=== PATIENT | male | born 1935 | race Caucasian/White ===

== ENCOUNTER 2017-01-09 17:37 | Inpatient (IN) | payer MEDICARE, OTHER ==
[~2017-01-09] VITALS: Ht 180.3 cm; Wt 74.3 kg
[~2017-01-09 17:37] MED LIST: AMLO5TAB2 PO; METF10002 PO; MULT-6 PO; OMEP-110 PO; SIMV10TA3 PO
[2017-01-09] MEDS ORDERED: SODIUM CHLORIDE FLUSH 10ML SYR IVF ONE (21:00)
[2017-01-09 22:07] LABS: HEMOGLOBIN 11.7 g/dL (13.7-18.0)
[2017-01-09 22:17] LABS: ASPARTATE AMINO TRANSFERASE 25 U/L (15-37); BLOOD UREA NITROGEN 30 mg/dL (7-18)
[2017-01-09] MEDS ORDERED: MORPHINE SULFATE 4 MG/ML, 1ML IVPush PRN (22:30)
[2017-01-09] MEDS ORDERED: ACETAMINOPHEN 325 MG TABLET PO PRN (22:30)
[2017-01-09] MEDS ORDERED: ONDANSETRON 2MG/ML, 2ML IVP PRN (22:30)
[2017-01-09] MEDS ORDERED: BISACODYL 10 MG SUPP PR PRN (22:30)
[2017-01-09] MEDS ORDERED: DOCUSATE 100 MG CAPSULE PO PRN (22:30)
[2017-01-09] MEDS ORDERED: POLYETHYLENE GLYCOL 17 GM PACKET PO PRN (22:30)
[2017-01-09 23:08] VITALS: BP 162/89
[2017-01-09] MEDS: OXYcodone IR 5MG TABLET PO PRN (23:48)
[2017-01-10] MEDS: ENOXAPARIN 40 MG/0.4 ML SQ SCH ×2 (00:11→22:58)
[2017-01-10 02:46] VITALS: BP 143/75
[2017-01-10 05:02] LABS: HEMOGLOBIN 11.1 g/dL (13.7-18.0)
[2017-01-10 05:09] LABS: BLOOD UREA NITROGEN 27 mg/dL (7-18)
[2017-01-10 07:15] VITALS: BP 149/86
[2017-01-10] MEDS: MULTIVITAMIN 1 TABLET PO SCH (08:53)
[2017-01-10] MEDS: AMLODIPINE 5 MG TABLET PO SCH (08:53)
[2017-01-10] MEDS: SIMVASTATIN 10 MG TABLET PO SCH (08:53)
[2017-01-10] MEDS: metFORMIN 500 MG TABLET PO SCH ×2 (08:54→21:33)
[2017-01-10] MEDS: SODIUM CHLORIDE FLUSH 10ML SYR IVF SCH ×2 (08:54→21:38)
[2017-01-10] MEDS: INSULIN REGULAR 100 UNITS/ML, 3ML VIAL SQ-INSULIN SCH ×4 (08:54→21:38)
[2017-01-10] MEDS ORDERED: ERGOCALCIFEROL 50,000 UNIT CAPSULE PO SCH (10:30)
[2017-01-10] MEDS: OXYcodone IR 5MG TABLET PO PRN ×4 (11:22→22:56)
[2017-01-10 15:00] VITALS: BP 133/65
[2017-01-10 20:12] VITALS: BP 148/62
[2017-01-11 01:48] VITALS: BP 127/63
[2017-01-11] MEDS: OXYcodone IR 5MG TABLET PO PRN ×5 (03:39→23:04)
[2017-01-11 07:37] VITALS: BP 135/65
[2017-01-11] MEDS: SIMVASTATIN 10 MG TABLET PO SCH (07:39)
[2017-01-11] MEDS: metFORMIN 500 MG TABLET PO SCH ×2 (07:39→20:32)
[2017-01-11] MEDS: INSULIN REGULAR 100 UNITS/ML, 3ML VIAL SQ-INSULIN SCH ×4 (07:39→20:37)
[2017-01-11] MEDS: MULTIVITAMIN 1 TABLET PO SCH (07:39)
[2017-01-11] MEDS: SODIUM CHLORIDE FLUSH 10ML SYR IVF SCH ×2 (07:39→20:36)
[2017-01-11] MEDS: AMLODIPINE 5 MG TABLET PO SCH (07:39)
[2017-01-11] MEDS ORDERED: METHOCARBAMOL 500 MG TABLET PO PRN (08:30)
[2017-01-11 14:00] VITALS: BP 106/56
[2017-01-11 20:10] VITALS: BP 126/63
[2017-01-11] MEDS: ENOXAPARIN 40 MG/0.4 ML SQ SCH (23:04)
[2017-01-12 03:48] VITALS: BP 108/47
[2017-01-12] MEDS: OXYcodone IR 5MG TABLET PO PRN ×2 (04:51→09:16)
[2017-01-12] MEDS: INSULIN REGULAR 100 UNITS/ML, 3ML VIAL SQ-INSULIN SCH ×4 (06:40→20:49)
[2017-01-12 07:00] VITALS: BP 119/56
[2017-01-12] MEDS: AMLODIPINE 5 MG TABLET PO SCH (09:16)
[2017-01-12] MEDS: SIMVASTATIN 10 MG TABLET PO SCH (09:16)
[2017-01-12] MEDS: metFORMIN 500 MG TABLET PO SCH ×2 (09:16→20:48)
[2017-01-12] MEDS: MULTIVITAMIN 1 TABLET PO SCH (09:16)
[2017-01-12] MEDS: SODIUM CHLORIDE FLUSH 10ML SYR IVF SCH ×2 (09:17→20:48)
[2017-01-12] MEDS ORDERED: HYDROcodone/APAP 5/325 TABLET PO PRN (12:00)
[2017-01-12 13:23] VITALS: BP 125/61
[2017-01-12 21:17] VITALS: BP 124/60
[2017-01-12] MEDS: ENOXAPARIN 40 MG/0.4 ML SQ SCH (22:10)
[2017-01-13 03:09] VITALS: BP 116/54
[2017-01-13 06:21] LABS: HEMOGLOBIN 9.8 g/dL (13.7-18.0)
[2017-01-13 06:42] LABS: BLOOD UREA NITROGEN 42 mg/dL (7-18)
[2017-01-13] MEDS: INSULIN REGULAR 100 UNITS/ML, 3ML VIAL SQ-INSULIN SCH ×5 (07:00→21:00)
[2017-01-13 07:38] VITALS: BP 122/59
[2017-01-13] MEDS ORDERED: SODIUM BICARBONATE 4.2%, 5ML ONE (07:53)
[2017-01-13] MEDS ORDERED: LIDOCAINE 1%, 20ML ONE (07:53)
[2017-01-13] MEDS: SODIUM CHLORIDE FLUSH 10ML SYR IVF SCH ×2 (08:03→20:59)
[2017-01-13] MEDS: AMLODIPINE 5 MG TABLET PO SCH (08:03)
[2017-01-13] MEDS: metFORMIN 500 MG TABLET PO SCH ×2 (08:32→21:00)
[2017-01-13] MEDS: MULTIVITAMIN 1 TABLET PO SCH (08:32)
[2017-01-13] MEDS: SIMVASTATIN 10 MG TABLET PO SCH (08:32)
[2017-01-13 09:25] LABS: SYN DILUTIN 1; SYN WBC SQ COUNTED 1
[2017-01-13 14:02] VITALS: BP 145/64
[2017-01-13 19:38] VITALS: BP 132/57
[2017-01-13] MEDS: ENOXAPARIN 40 MG/0.4 ML SQ SCH (22:17)
[2017-01-14 03:56] VITALS: BP 126/67
[2017-01-14 05:18] LABS: HEMOGLOBIN 10.4 g/dL (13.7-18.0)
[2017-01-14] MEDS: INSULIN REGULAR 100 UNITS/ML, 3ML VIAL SQ-INSULIN SCH ×3 (06:50→16:00)
[2017-01-14 07:23] VITALS: BP 142/70
[2017-01-14] MEDS: metFORMIN 500 MG TABLET PO SCH (08:55)
[2017-01-14] MEDS: SIMVASTATIN 10 MG TABLET PO SCH (08:55)
[2017-01-14] MEDS: AMLODIPINE 5 MG TABLET PO SCH (08:55)
[2017-01-14] MEDS: SODIUM CHLORIDE FLUSH 10ML SYR IVF SCH (08:55)
[2017-01-14] MEDS: MULTIVITAMIN 1 TABLET PO SCH (08:55)
[2017-01-14 13:55] VITALS: BP 135/78
[2017-01-14] MEDS ORDERED: INSU100V5 SQ-INSULIN (14:51)
[2017-01-14] MEDS ORDERED: TRAM50TA2 PO (14:51)
[2017-01-14] MEDS ORDERED: ENOX40SY4 SQ (14:51)
[2017-01-14] MEDS ORDERED: METH500T7 PO (14:51)
[2017-01-14] MEDS ORDERED: HYDR-3240 PO (14:51)
[2017-01-14] MEDS ORDERED: POLY17PO5 PO (14:51)
[2017-01-14] MEDS ORDERED: ERGO500017 PO (14:51)
[2017-01-14 19:04] VITALS: BP 138/63
== END 2017-01-14 20:15 | DRG 553 ==
LOC: ED 22:21 → EDIP 22:25 → 4NOR 22:46
PROC: 0S9D3ZX Drainage of Left Knee Joint, Percutaneous Approach, Diagnostic (ICD-10-PCS; principal; 2017-01-13)
DX: M17.32 Unilateral post-traumatic osteoarthritis, left knee (principal); S72.145A Nondisplaced intertrochanteric fracture of left femur, initial encounter for closed fracture; D72.829 Elevated white blood cell count, unspecified; Z66 Do not resuscitate; E78.5 Hyperlipidemia, unspecified; I10 Essential (primary) hypertension; E11.9 Type 2 diabetes mellitus without complications; D64.9 Anemia, unspecified; W01.0XXA Fall on same level from slipping, tripping and stumbling without subsequent striking against object, initial encounter; E55.9 Vitamin D deficiency, unspecified; M19.90 Unspecified osteoarthritis, unspecified site; Z85.07 Personal history of malignant neoplasm of pancreas; Z86.73 Personal history of transient ischemic attack (TIA), and cerebral infarction without residual deficits; Z85.51 Personal history of malignant neoplasm of bladder; Z85.528 Personal history of other malignant neoplasm of kidney; Z87.11 Personal history of peptic ulcer disease; Z90.81 Acquired absence of spleen; Z90.5 Acquired absence of kidney; Z90.49 Acquired absence of other specified parts of digestive tract; Z85.46 Personal history of malignant neoplasm of prostate; Z92.3 Personal history of irradiation; Z81.1 Family history of alcohol abuse and dependence; R19.7 Diarrhea, unspecified; C61 Malignant neoplasm of prostate
CPT/HCPCS: 20610; 20611; 36415; 71010; 80048; 80053; 81003; 82306; 82962; 84550; 85025; 85610; 85730; 85810; 87070; 87075; 87205; 87324; 89050; 89060; 93005; 99285; J1650; J1815; J3490

== ENCOUNTER → 2017-07-17 | Outpatient (CLI) | payer OTHER, MEDICARE ==
[~2017-07-17] MED LIST changes: +ENOX40SY4 SQ; +ERGO500017 PO; +HYDR-3240 PO; +INSU100V5 SQ-INSULIN; +METH500T7 PO; +POLY17PO5 PO; +TRAM50TA2 PO
== END | disposition home or self-care (01) ==
LOC: PETCFH 09:04
PROVIDERS: ATTEND Specialist
DX: C64.2 Malignant neoplasm of left kidney, except renal pelvis (principal); Z90.5 Acquired absence of kidney
CPT/HCPCS: 78306; A9503

== ENCOUNTER → 2018-01-22 | Outpatient (CLI) | payer OTHER, MEDICARE | LOC: ROC 07:50 | PROVIDERS: ATTEND Radiology Radiation Oncology | DX: Z08 Encounter for follow-up examination after completed treatment for malignant neoplasm (principal); C61 Malignant neoplasm of prostate; D49.4 Neoplasm of unspecified behavior of bladder; Z90.5 Acquired absence of kidney; Z79.84 Long term (current) use of oral hypoglycemic drugs; Z85.528 Personal history of other malignant neoplasm of kidney | CPT/HCPCS: 99212; G0463 ==

== ENCOUNTER → 2018-05-07 | Outpatient (CLI) | payer MEDICARE | END | disposition home or self-care (01) | LOC: RAD 15:55 | PROVIDERS: ATTEND Family Medicine | DX: M51.36 Other intervertebral disc degeneration, lumbar region (principal); M54.42 Lumbago with sciatica, left side | CPT/HCPCS: 72110 ==

== ENCOUNTER 2018-10-14 01:57 | Inpatient (IN) | payer MEDICARE ==
[~2018-10-14] VITALS: Ht 180.3 cm; Wt 72.7 kg
[~2018-10-14 01:57] MED LIST changes: +AMLO-150 PO; -AMLO5TAB2 PO
--- NOTE | 2018-10-14 02:10 | NUR ---
PT. AMBULATORY TO ROOM FROM TRIAGE WITH FWW.
[2018-10-14] MEDS ORDERED: MORPHINE SULFATE 4 MG/ML, 1ML IVPush PRN (02:30)
[2018-10-14] MEDS ORDERED: MORPHINE SULFATE 4 MG/ML, 1ML ONE (02:30)
[2018-10-14] MEDS ORDERED: ONDANSETRON 2MG/ML, 2ML IVPush ONE (02:30)
[2018-10-14] MEDS ORDERED: ONDANSETRON 2MG/ML, 2ML ONE (02:30)
[2018-10-14 02:37] LABS: BASOPHILS # (AUTO) 0.04 x10^3/uL (0-0.1); BASOPHILS % (AUTO) 0 % (0-1); EOSINOPHILS % (AUTO) 4 % (1-7); LYMPHOCYTES # (AUTO) 1.74 x10^3/uL (1-3.4); LYMPHOCYTES % (AUTO) 17 % (22-44); MD NO; MEAN CORPUSCULAR HEMOGLOBIN 30.4 pg (27.5-34.5); MEAN CORPUSCULAR VOLUME 92.1 fL (81-97); MEAN PLATELET VOLUME 8.4 fL (7.4-10.4); MONOCYTES # (AUTO) 0.72 x10^3/uL (0.2-0.8); MONOCYTES % (AUTO) 7 % (2-9); NEUTROPHILS # (AUTO) 7.29 x10^3/uL (1.8-6.8); NEUTROPHILS % (AUTO) 72 % (42-75); PLATELET COUNT 678 x10^3/uL (130-400); RED BLOOD COUNT 3.71 x10^6/uL (4.38-5.82); RED CELL DISTRIBUTION WIDTH 16.2 % (9.4-14.8)
[2018-10-14] MEDS ORDERED: ASPI-496 PO (02:43)
[2018-10-14] MEDS ORDERED: GLIM4TAB2 PO (02:43)
--- NOTE | 2018-10-14 02:43 | NUR ---
SUMMARY NOTE: PT. TO ED WITH C/O LEFT LOWER QUAD ABD PAIN X 3 DAYS, "I AM NOT ABLE TO SLEEP BECAUSE IT HURTS SO BAD". PT. DENIES N/V/D/DYSURIA. PT. HAS HX OF CA AND ABD SX. IV ESTABLISHED AND LABS DRAWN. CONTINUOUS PULSE OX, B/P, AND HEART MONITORS PLACED. EKG COMPLETED AND PRESENTED TO ERMD. PT. MEDICATED PER DEC FOR 8/10 ABD PAIN. CHEST X-RAY COMPLETED. PT. DECLINES WARM BLANKET. CALL LIGHT IN REACH; PT. EDUCATED ON USE AND VERBALIZED UNDERSTANDING. ALL SAFETY MEASURES OBSERVED. PT. AWAITING CT.
--- NOTE | 2018-10-14 02:46 | NUR ---
URINAL PROVIDED; PT. AWARE OF NEED FOR UA.
[2018-10-14 02:47] LABS: ALANINE AMINOTRANSFERASE 33 U/L (12-78); ALBUMIN 2.6 g/dL (3.4-5.0); ANION GAP 6 mmol/L (5-15); CALCIUM 8.5 mg/dL (8.5-10.1); CHLORIDE 106 mmol/L (98-107); CREATININE 0.92 mg/dL (0.7-1.3)
[2018-10-14 02:49] LABS: ALKALINE PHOSPHATASE 153 U/L (45-117); BILIRUBIN,TOTAL 0.3 mg/dL (0.2-1.0); TOTAL PROTEIN 6.8 g/dL (6.4-8.2)
--- NOTE | 2018-10-14 03:00 | NUR ---
URINE COLLECTED AND SENT TO LAB. PT. TO CT VIA [facility].
[2018-10-14 03:03] LABS: MICROSCOPIC NOT IND
[2018-10-14 03:05] LABS: CULTURE INDICATED? NO
[2018-10-14] MEDS ORDERED: OMNIPAQUE 350 MG/ML, 100ML BOTTLE ONE (03:16)
--- NOTE | 2018-10-14 03:45 | NUR ---
PT. REPORTS PAIN HAS NOW GONE AWAY; PT. LYING SUPINE ON GURNEY WITH NADN. VS UPDATED. PT. DENIES NEEDS. ALL SAFETY MEASUERS MAINTAINED. CALL LIGHT IN REACH. AWAITING CT/X-RAY READS.
--- NOTE | 2018-10-14 04:20 | NUR ---
CALLED CT ABOUT CT READ; TECH LOOKING INTO HOW MUCH LONGER IT SHOULD BE.
--- NOTE | 2018-10-14 04:43 | NUR ---
PER MANAGER TRANSMISSION MD PICKED UP CT TO READ AND IT SHOULD BE RESULTED SOON.
--- NOTE | 2018-10-14 04:44 | NUR ---
PT. RESTING ON GURNEY WITH EYES CLOSED. NADN. EVEN, NON-LABORED RESPIRATIONS VISIBLE. ALL SAFETY MEASUERS OBSERVED. VS UPDATED.
--- NOTE | 2018-10-14 04:58 | NUR ---
CHART UP FOR RECHECK BY MELODIE.
--- NOTE | 2018-10-14 05:25 | NUR ---
ATTEMPTED TO HANG IVF; PT. EXPRESSING WANTING TO JUST GO HOME. DR. SHELBY BACK IN TO DISCUSS PLAN FOR ADMISSION WITH PT. TO TRY TO GET PT. TO CHANGE MIND ABOUT GOING AMA.
--- NOTE | 2018-10-14 05:29 | NUR ---
PT. AGREEABLE WITH STAYING IN HOSPITAL NOW; STATES "I WANNA LAY OFF THE PAIN MEDS". PT. AGREES TO REQUEST PAIN MEDS IF PAIN BECOMES INTOLERABLE. DENIES NEEDS AT THIS TIME.
[2018-10-14] MEDS ORDERED: MORPHINE SULFATE 4 MG/ML, 1ML IVPush ONE (05:30)
[2018-10-14] MEDS ORDERED: SODIUM CHLORIDE 0.9% 1,000ML IVBOLUS ONE (05:30)
[2018-10-14 05:35] LABS: TROPONIN I < 0.015 ng/mL (0.000-0.045)
--- NOTE | 2018-10-14 05:45 | NUR ---
REPORT TO YOON DRAKE. FLOOR READY FOR PT. TRANSPORT.
[2018-10-14 06:03] VITALS: BP 131/81
[2018-10-14 07:54] VITALS: BP 132/75
[2018-10-14] MEDS ORDERED: DEXTROSE 50%, 50ML SYRINGE IVPush PRN (09:30)
[2018-10-14] MEDS ORDERED: TEMAZEPAM 15 MG CAPSULE PO PRN (09:30)
[2018-10-14] MEDS ORDERED: ONDANSETRON 2MG/ML, 2ML IVPush PRN (09:30)
[2018-10-14] MEDS ORDERED: ACETAMINOPHEN 325 MG TABLET PO PRN (09:30)
[2018-10-14] MEDS ORDERED: GLUCAGON 1 MG IM PRN (09:30)
[2018-10-14] MEDS ORDERED: DOCUSATE 100 MG CAPSULE PO PRN (09:30)
[2018-10-14] MEDS ORDERED: POLYETHYLENE GLYCOL 17 GM PACKET PO PRN (09:30)
[2018-10-14] MEDS ORDERED: morphine SULFATE 10 MG/ML, 1ML IVPush PRN (09:30)
[2018-10-14] MEDS ORDERED: ONDANSETRON ODT 4 MG PO PRN (09:30)
[2018-10-14] MEDS ORDERED: DEXTROSE 4 GM TAB.CHEW PO PRN (09:30)
[2018-10-14] MEDS: SIMVASTATIN 10 MG TABLET PO SCH (09:58)
[2018-10-14] MEDS: AMLODIPINE 5 MG TABLET PO SCH (09:58)
[2018-10-14] MEDS: INSULIN LISPRO 100 UNITS/ML, PEN SQ-INSULIN SCH ×3 (11:00→21:21)
[2018-10-14 13:45] VITALS: BP 112/59
[2018-10-14 19:50] VITALS: BP 129/66
[2018-10-14] MEDS: SODIUM CHLORIDE FLUSH 10ML SYR IVF SCH (21:19)
[2018-10-15 02:16] VITALS: BP 135/76
[2018-10-15 05:20] LABS: ALBUMIN 2.2 g/dL (3.4-5.0); ANION GAP 7 mmol/L (5-15); CALCIUM 7.8 mg/dL (8.5-10.1); CHLORIDE 109 mmol/L (98-107)
[2018-10-15 05:23] LABS: CREATININE 0.78 mg/dL (0.7-1.3)
[2018-10-15 05:24] LABS: ALANINE AMINOTRANSFERASE 28 U/L (12-78); ALKALINE PHOSPHATASE 155 U/L (45-117); BILIRUBIN,TOTAL 0.3 mg/dL (0.2-1.0); TOTAL PROTEIN 6.2 g/dL (6.4-8.2)
[2018-10-15 06:32] LABS: BASOPHILS # (AUTO) 0.04 x10^3/uL (0-0.1); BASOPHILS % (AUTO) 0 % (0-1); EOSINOPHILS # (AUTO) 0.38 x10^3/uL (0-0.4); EOSINOPHILS % (AUTO) 4 % (1-7); LYMPHOCYTES # (AUTO) 1.77 x10^3/uL (1-3.4); LYMPHOCYTES % (AUTO) 17 % (22-44); MD NO; MEAN CORPUSCULAR HEMOGLOBIN 30.7 pg (27.5-34.5); MEAN CORPUSCULAR HGB CONC 33.3 g/dL (33.2-36.2); MEAN CORPUSCULAR VOLUME 92.2 fL (81-97); MEAN PLATELET VOLUME 8.7 fL (7.4-10.4); MONOCYTES # (AUTO) 0.96 x10^3/uL (0.2-0.8); MONOCYTES % (AUTO) 9 % (2-9); NEUTROPHILS # (AUTO) 7.07 x10^3/uL (1.8-6.8); NEUTROPHILS % (AUTO) 69 % (42-75); PLATELET COUNT 687 x10^3/uL (130-400); RED BLOOD COUNT 3.35 x10^6/uL (4.38-5.82)
[2018-10-15 07:19] VITALS: BP 137/77
[2018-10-15] MEDS: SIMVASTATIN 10 MG TABLET PO SCH (07:23)
[2018-10-15] MEDS: AMLODIPINE 5 MG TABLET PO SCH (07:23)
[2018-10-15] MEDS: SODIUM CHLORIDE FLUSH 10ML SYR IVF SCH ×2 (07:25→20:37)
[2018-10-15] MEDS: INSULIN LISPRO 100 UNITS/ML, PEN SQ-INSULIN SCH ×4 (07:25→20:40)
[2018-10-15] MEDS ORDERED: KETOROLAC 30 MG/1 ML IVPush PRN (13:00)
[2018-10-15] MEDS ORDERED: LIDODERM 5% PATCH TD ONE (13:00)
[2018-10-15] MEDS ORDERED: POLYETHYLENE GLYCOL 17 GM PACKET PO PRN (13:00)
[2018-10-15] MEDS ORDERED: BISACODYL 10 MG SUPP PR PRN (13:00)
[2018-10-15] MEDS ORDERED: METHOCARBAMOL 500 MG TABLET PO PRN (13:00)
[2018-10-15] MEDS ORDERED: GABAPENTIN 100 MG CAPSULE PO PRN (13:30)
[2018-10-15 14:23] VITALS: BP 134/67
[2018-10-15 20:21] VITALS: BP_SYST 129; BP_SYST 133; BP_DIAS 68
[2018-10-15] MEDS: OXYcodone IR 5MG TABLET PO PRN (20:31)
[2018-10-15] MEDS: DOCUSATE 100 MG CAPSULE PO SCH (20:31)
[2018-10-16] MEDS: OXYcodone IR 5MG TABLET PO PRN ×2 (00:12→06:04)
[2018-10-16 01:41] VITALS: BP 123/61
[2018-10-16 04:46] LABS: ANION GAP 7 mmol/L (5-15); CALCIUM 8.1 mg/dL (8.5-10.1); CHLORIDE 107 mmol/L (98-107); CREATININE 0.76 mg/dL (0.7-1.3)
[2018-10-16 05:53] LABS: MD YES; MEAN CORPUSCULAR HEMOGLOBIN 30.5 pg (27.5-34.5); MEAN CORPUSCULAR VOLUME 92.5 fL (81-97); MEAN PLATELET VOLUME 8.7 fL (7.4-10.4); PLATELET COUNT 574 x10^3/uL (130-400); RED BLOOD COUNT 3.33 x10^6/uL (4.38-5.82); RED CELL DISTRIBUTION WIDTH 16.2 % (9.4-14.8)
[2018-10-16 05:55] LABS: EOS#(MANUAL) 0.77 x10^3/uL (0.0-0.4); EOS% (MANUAL) 9 % (1-7); LYMPHS% (MANUAL) 20 % (22-44); MONOS% (MANUAL) 7 % (2-9); NRBC % (MANUAL) 1 % (0-1); SEG#(MANUAL) 5.44 x10^3/uL (1.8-6.8); SEGS% (MANUAL) 64 % (42-75)
[2018-10-16 05:56] LABS: ANISOCYTOSIS 1+; POLYCHROMASIA 1+
[2018-10-16 05:59] LABS: <PLATELET ESTIMATE> INCREASED; LARGE PLATELETS 1+
[2018-10-16] MEDS: INSULIN LISPRO 100 UNITS/ML, PEN SQ-INSULIN SCH ×2 (07:30→11:05)
[2018-10-16 08:30] VITALS: BP 127/66
[2018-10-16] MEDS: SODIUM CHLORIDE FLUSH 10ML SYR IVF SCH (09:00)
[2018-10-16] MEDS: AMLODIPINE 5 MG TABLET PO SCH (09:01)
[2018-10-16] MEDS: SIMVASTATIN 10 MG TABLET PO SCH (09:01)
[2018-10-16] MEDS: DOCUSATE 100 MG CAPSULE PO SCH (09:01)
[2018-10-16] MEDS ORDERED: POLY17PO5 PO (10:48)
[2018-10-16] MEDS ORDERED: DOCU-131 PO (10:48)
== END 2018-10-16 13:46 | disposition home or self-care (01) | DRG 391 ==
LOC: ED 02:52 → EDIP 05:10 → 3NE 06:02 → 3NW 18:44 → DCLOUNGE 10-16 13:33
PROVIDERS: ADMIT Internal Medicine; ATTEND Internal Medicine
DX: R10.32 Left lower quadrant pain (principal); E43 Unspecified severe protein-calorie malnutrition; E87.2 Acidosis; L76.34 Postprocedural seroma of skin and subcutaneous tissue following other procedure; E11.9 Type 2 diabetes mellitus without complications; I10 Essential (primary) hypertension; Y83.8 Other surgical procedures as the cause of abnormal reaction of the patient, or of later complication, without mention of misadventure at the time of the procedure; D64.9 Anemia, unspecified; D72.829 Elevated white blood cell count, unspecified; E78.00 Pure hypercholesterolemia, unspecified; E78.5 Hyperlipidemia, unspecified; K59.09 Other constipation; Z96.642 Presence of left artificial hip joint; Z96.652 Presence of left artificial knee joint; Z79.82 Long term (current) use of aspirin; Z85.07 Personal history of malignant neoplasm of pancreas; Z85.46 Personal history of malignant neoplasm of prostate; Z85.51 Personal history of malignant neoplasm of bladder; Z90.5 Acquired absence of kidney; Z85.528 Personal history of other malignant neoplasm of kidney; Z87.891 Personal history of nicotine dependence; Z79.899 Other long term (current) drug therapy
CPT/HCPCS: 36415; 71045; 74177; 80048; 80053; 81003; 82962; 83605; 83690; 84484; 85025; 93005; 96374; 96375; 99285; G0378; J2405; Q9967; J1815; J7030

== ENCOUNTER 2018-11-17 19:02 | Emergency (ER) | payer MEDICARE ==
[~2018-11-17] VITALS: Ht 175.3 cm; Wt 73.5 kg
[~2018-11-17 19:02] MED LIST changes: +ASPI-496 PO; +DOCU-131 PO; +GLIM4TAB2 PO
[2018-11-17 19:33] LABS: BASOPHILS # (AUTO) 0.05 x10^3/uL (0-0.1); BASOPHILS % (AUTO) 0 % (0-1); EOSINOPHILS # (AUTO) 0.12 x10^3/uL (0-0.4); EOSINOPHILS % (AUTO) 1 % (1-7); LYMPHOCYTES # (AUTO) 2.08 x10^3/uL (1-3.4); LYMPHOCYTES % (AUTO) 15 % (22-44); MD NO; MEAN CORPUSCULAR HEMOGLOBIN 29.7 pg (27.5-34.5); MEAN CORPUSCULAR HGB CONC 32.9 g/dL (33.2-36.2); MEAN CORPUSCULAR VOLUME 90.4 fL (81-97); MEAN PLATELET VOLUME 8.5 fL (7.4-10.4); MONOCYTES # (AUTO) 1.14 x10^3/uL (0.2-0.8); MONOCYTES % (AUTO) 8 % (2-9); NEUTROPHILS # (AUTO) 10.22 x10^3/uL (1.8-6.8); NEUTROPHILS % (AUTO) 75 % (42-75); PLATELET COUNT 526 x10^3/uL (130-400); RED BLOOD COUNT 3.97 x10^6/uL (4.38-5.82); RED CELL DISTRIBUTION WIDTH 15.4 % (9.4-14.8)
[2018-11-17 19:41] LABS: ALBUMIN 3.2 g/dL (3.4-5.0); ANION GAP 7 mmol/L (5-15); CALCIUM 9.2 mg/dL (8.5-10.1); CHLORIDE 107 mmol/L (98-107); CREATININE 0.74 mg/dL (0.7-1.3)
--- NOTE | 2018-11-17 20:15 | NUR ---
FROM LOBBY TO ROOM AT THIS TIME
--- NOTE | 2018-11-17 20:28 | NUR ---
pt to ed for posterior neck pain with movement and stiffness x 2 days. denies falls or other trauma. family at bedside. connected to monitors. vss. awaiting md assessment.
--- NOTE | 2018-11-17 20:32 | NUR ---
pt states when neck began hurting 2 days ago, he was looking down at a puzzle for 3-4 hours. pt states vision became blurry and he was unable to see colors. he went to take sleep for the evening approx 15 minutes later. after he woke up the next morning, symptoms had resolved.
--- NOTE | 2018-11-17 21:00 | NUR ---
ALL RESULTS BACK AT THIS TIME. AWAITING FURTHER ORDERS ANS DISPO.
[2018-11-17] MEDS ORDERED: KETOROLAC 30 MG/1 ML ONE (21:29)
[2018-11-17] MEDS ORDERED: KETOROLAC 30 MG/1 ML IM ONE (21:30)
[2018-11-17] MEDS ORDERED: DIAZEPAM 5 MG TABLET PO ONE (21:30)
[2018-11-17] MEDS ORDERED: DIAZEPAM 5 MG TABLET ONE (21:30)
[2018-11-17] MEDS ORDERED: DIAZEPAM 5 MG/ML, 10ML VIAL IV ONE (21:30)
[2018-11-17] MEDS ORDERED: KETOROLAC 30 MG/1 ML IVPush ONE (21:30)
--- NOTE | 2018-11-17 21:42 | NUR ---
PT MEDICATED PER DEC. MD TO BEDSIDE FOR UPDATES. VSS. FAMILY AT BEDSIDE. CALL LIGHT WITHIN REACH. PROVIDED ASSISTANCE WITH URINAL. NO OTHER NEEDS AT THIS TIME.
[2018-11-17 21:43] VITALS: BP 143/70
== END 2018-11-17 22:37 | disposition home or self-care (01) ==
LOC: ED 22:30
DX: S16.1XXA Strain of muscle, fascia and tendon at neck level, initial encounter (principal); X58.XXXA Exposure to other specified factors, initial encounter; Y93.89 Activity, other specified; Y92.89 Other specified places as the place of occurrence of the external cause; Y99.8 Other external cause status; E78.5 Hyperlipidemia, unspecified; E78.00 Pure hypercholesterolemia, unspecified; I10 Essential (primary) hypertension; E11.21 Type 2 diabetes mellitus with diabetic nephropathy; Z85.46 Personal history of malignant neoplasm of prostate; Z85.51 Personal history of malignant neoplasm of bladder
CPT/HCPCS: 36415; 72050; 80048; 82040; 85025; 96372; 99284; J1885; J3360